=== PATIENT | female | born 1985 | race Asian ===

== ENCOUNTER → 2024-03-02 11:16 | Outpatient (REF) | payer BC, SELFPAY | LOC: PNTC 11:16 | PROVIDERS: ATTENDING PHYSICIAN Obstetrics & Gynecology | DX: Z36.0 Encounter for antenatal screening for chromosomal anomalies (principal); Z36.82 Encounter for antenatal screening for nuchal translucency | CPT/HCPCS: 76801; 76813 ==

== ENCOUNTER → 2024-06-01 07:42 | Outpatient (REF) | payer BC, SELFPAY | LOC: HWRAD 07:42 | PROVIDERS: ATTENDING PHYSICIAN Physician Assistant; FAMILY PHYSICIAN Internal Medicine | DX: E04.1 Nontoxic single thyroid nodule (principal) | CPT/HCPCS: 76536 ==

== ENCOUNTER → 2024-06-18 10:15 | Outpatient (REF) | payer BC, SELFPAY ==
--- NOTE | 2024-06-18 10:20 | PN.DIAED06 ---
Meal Plan - Gestational
- Breakfast
Gestational Diabetes Meal Plan Name: 1800 calories
Breakfast - Total Carbohydrate (grams): 30
Breakfast - Starch Carbohydrate: 1
Breakfast - Fruit Carbohydrate: 0
Breakfast - Milk Carbohydrate: 1
Breakfast - Nonstarchy Vegetables: Yes
Breakfast - Meat/Protein: 1
Breakfast - Fat: 2
- Morning Snack
Morning Snack - Total Carbohydrate (grams): 30
Morning Snack - Starch Carbohydrate: 1
Morning Snack - Fruit Carbohydrate: 0
Morning Snack - Milk Carbohydrate: 1
Morning Snack - Nonstarchy Vegetables: Yes
Morning Snack - Meat/Protein: 0.5
Morning Snack - Fat: 0
- Lunch
Lunch - Total Carbohydrate (grams): 45
Lunch - Starch Carbohydrate: 2
Lunch - Fruit Carbohydrate: 1
Lunch - Milk Carbohydrate: 0
Lunch - Nonstarchy Vegetables: Yes
Lunch - Meat/Protein: 2
Lunch - Fat: 1
- Afternoon Snack
Afternoon Snack - Total Carbohydrate (grams): 30
Afternoon Snack - Starch Carbohydrate: 1
Afternoon Snack - Fruit Carbohydrate: 1
Afternoon Snack - Milk Carbohydrate: 0
Afternoon Snack - Nonstarchy Vegetables: Yes
Afternoon Snack - Meat/Protein: 1
Afternoon Snack - Fat: 0
- Dinner
Dinner - Total Carbohydrate (grams): 45
Dinner - Starch Carbohydrate: 2
Dinner - Fruit Carbohydrate: 0
Dinner - Milk Carbohydrate: 1
Dinner - Nonstarchy Vegetables: Yes
Dinner - Meat/Protein: 2
Dinner - Fat: 2
- Evening Snack
Evening Snack - Total Carbohydrate (grams): 30
Evening Snack - Starch Carbohydrate: 1
Evening Snack - Fruit Carbohydrate: 0
Evening Snack - Milk Carbohydrate: 1
Evening Snack - Nonstarchy Vegetables: Yes
Evening Snack - Meat/Protein: 1
Evening Snack - Fat: 1
--- NOTE | 2024-06-18 11:45 | PN.DE ---
Diabetes Education
- -
Met with Ms. Ramirez with her for medical nutrition therapy. Vladimir is currently at 28 weeks of gestation.
Explained glucose metabolism in body and what occurs during to cause increase blood sugar. Discussed importance of keeping BS well controlled to avoid complications to the baby during and after (macrosomia, hypoglycemia).
Explained to Vladimir that she is at increased risk of developing T2DM in the future.
Offered glucose meter which she declined due to fear for needles. 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 Provided instructions on proper testing pattern, she is aware to test FBS and 2 hr pp each
meal. Expected results for FBS <95 mg/dl and 2 hr pp <120 mg/dl.
Log sheet provided for her to record results, she will send a 4 day meal log with all her FBG and 2hr Post prandial glucose numbers to this office for review.
In addition, she will send all her glucose readings to Colette at [facility] every Saturday.
Discussed macronutrients, provided with 1800 hanh GDM meal plan, however, she has a poor understanding of healthy nutrition as she has been consuming high carbohydrate foods like rice for each meal including breakfast. 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 Had a lengthy discussion about carbs and the impact they pose on the glycemic index.
She has been educated on how to read a nutritional fact label and look at total CHO in relation to serving size. No fruit or fruit juice until noontime. Provided with handout on snacks as well as 'Choose Your Foods' booklet. Encouraged her to start
exercising and to remain physically active during and encouraged her to reach out should she need any help with the CMG insertion or a need a script for a glucose monitor or have any questions or require insulin as her progresses.
== END ==
LOC: DES 10:15
PROVIDERS: ATTENDING PHYSICIAN Obstetrics & Gynecology
DX: O24.419 Gestational diabetes mellitus in pregnancy, unspecified control (principal)
CPT/HCPCS: 99078

== ENCOUNTER → 2024-07-01 13:24 | Outpatient (REF) | payer BC, SELFPAY | LOC: PNTC 13:24 | PROVIDERS: ATTENDING PHYSICIAN Obstetrics & Gynecology | DX: O24.419 Gestational diabetes mellitus in pregnancy, unspecified control (principal) | CPT/HCPCS: 76815 ==

== ENCOUNTER → 2024-08-13 13:22 | Outpatient (REF) | payer BC, SELFPAY | LOC: PNTC 13:22 | PROVIDERS: ATTENDING PHYSICIAN Obstetrics & Gynecology | DX: O09.529 Supervision of elderly multigravida, unspecified trimester (principal) | CPT/HCPCS: 59025; 76816 ==

== ENCOUNTER → 2024-08-20 09:20 | Outpatient (REF) | payer BC, SELFPAY | LOC: PNTC 09:20 | PROVIDERS: ATTENDING PHYSICIAN Obstetrics & Gynecology | DX: O34.219 Maternal care for unspecified type scar from previous cesarean delivery (principal) | CPT/HCPCS: 59025; 76815 ==

== ENCOUNTER → 2024-08-27 11:34 | Outpatient (REF) | payer BC, SELFPAY | LOC: PNTC 11:34 | PROVIDERS: ATTENDING PHYSICIAN Obstetrics & Gynecology | DX: O34.219 Maternal care for unspecified type scar from previous cesarean delivery (principal) | CPT/HCPCS: 59025; 76815 ==

== ENCOUNTER 2024-09-01 09:51 | Inpatient (IN) | payer BC, SELFPAY ==
[2024-09-01 10:01] VITALS: BP 121/80; BMI 28.5
[2024-09-01] MEDS: LR 1000 IV (10:30)
[2024-09-01 10:33] LABS: Glucose - Point of Care 83 mg/dl (70-99)
[2024-09-01] MEDS: BICITRA 30 ML PO (10:38)
[2024-09-01] MEDS: ANCEF 10 IV (10:38)
[2024-09-01] MEDS: TYLENOL 1000 MG PO (10:38)
[2024-09-01 10:59] LABS: Hematocrit 40.2 % (37.0-47.0); Hemoglobin 12.6 g/dL (12.0-16.0); Mean Corp Hgb Conc. 31.3 g/dL (33.0-37.0); Mean Corpuscular Volume 70.3 fL (81.0-99.0); Mean Platelet Volume 10.7 fL (7.4-10.4); Platelet Count 212 10^3/uL (130-400); Red Blood Cell Count 5.72 10^6/uL (4.20-5.40); Red Cell Dist. Width 15.5 % (11.5-14.5); White Blood Cell Count 10.4 10^3/uL (4.8-10.8)
[2024-09-01] MEDS: MORPHINE SULFATE 2 MG IV ×2 (13:14→14:21)
[2024-09-01] MEDS: TORADOL 15 MG IV ×2 (16:35→22:30)
[2024-09-02] MEDS: BENADRYL 25 MG PO (00:39)
[2024-09-02] MEDS: TORADOL 15 MG IV ×2 (04:33→12:09)
[2024-09-02 05:38] LABS: Hematocrit 37.4 % (37.0-47.0); Hemoglobin 11.6 g/dL (12.0-16.0); Mean Corpuscular Hgb 22.3 pg (27.0-31.0); Mean Corpuscular Volume 71.8 fL (81.0-99.0); Platelet Count 198 10^3/uL (130-400); Red Blood Cell Count 5.21 10^6/uL (4.20-5.40); Red Cell Dist. Width 15.3 % (11.5-14.5); White Blood Cell Count 15.2 10^3/uL (4.8-10.8)
[2024-09-02] MEDS: PRENATAL PLUS 1 TABLET PO (07:41)
[2024-09-02] MEDS: SENOKOT-S 1 TABLET PO (07:41)
[2024-09-02] MEDS: MYLICON 80 MG PO ×2 (07:41→21:06)
[2024-09-02] MEDS: FEOSOL 325 MG PO (07:41)
--- NOTE | 2024-09-02 15:24 | W.PN.ANS.POP ---
Anesthesia Post Operative
- Anesthesia Post Op Note
Vital Signs Stable-See Nursing Note: Yes
Airway Patent: Yes
Adequate Pain Control: Yes
Change in Mental Status: No
Current Postoperative Nausea & Vomiting: No
Anesthesia Complications: No
General Anesthetic Recall: No
Unplanned Admission: No
Post Op Hydration Adequate: Yes
[2024-09-02] MEDS: MOTRIN 600 MG PO (21:05)
[2024-09-02] MEDS: TYLENOL 650 MG PO (21:06)
[2024-09-03] MEDS: TYLENOL 650 MG PO ×3 (04:55→19:42)
[2024-09-03] MEDS: MOTRIN 600 MG PO ×3 (04:55→19:43)
[2024-09-03] MEDS: SENOKOT-S 1 TABLET PO (08:34)
[2024-09-03] MEDS: PRENATAL PLUS 1 TABLET PO (08:34)
[2024-09-03] MEDS: FEOSOL 325 MG PO (08:34)
[2024-09-03] MEDS: MYLICON 80 MG PO (19:43)
[2024-09-04] MEDS: MOTRIN 600 MG PO ×2 (03:08→12:03)
[2024-09-04] MEDS: TYLENOL 650 MG PO ×2 (03:09→12:03)
[2024-09-04] MEDS: FEOSOL 325 MG PO (08:06)
[2024-09-04] MEDS: PRENATAL PLUS 1 TABLET PO (08:06)
[2024-09-04] MEDS: SENOKOT-S 1 TABLET PO (08:07)
--- NOTE | 2024-09-04 09:22 | W.DS.TRANS ---
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
-
Discharge Instructions:
Discharge Diagnosis/Procedures rcs
Instructions:
Stand-Alone Forms: LDRP Delivery
Changes to Home Medications: No
Discharge Medications:
DC Medications w/original date entered in [facility]
prenat.vits,hanh,oqk-tubk-bquof 1 tab PO DAILY 09/01/24
ibuprofen 600 mg tablet 600 mg PO Q6HPRN PRN cramps #90 tabs 09/04/24
Home Medication Changes
Pending Results: No
Total time spent discharging patient (in min): 20
[2024-09-04 11:57] LABS: Syphilis/T. pallidum Ab Reflex Negative (Negative)
== END 2024-09-04 13:05 | disposition home or self-care (01) | DRG 785 ==
LOC: LDRP 09:51
PROVIDERS: ADMITTING PHYSICIAN Obstetrics & Gynecology
PROC: 10D00Z1 Extraction of Products of Conception, Low, Open Approach (ICD-10-PCS; 2024-09-01)
PROC: 0UB70ZZ Excision of Bilateral Fallopian Tubes, Open Approach (ICD-10-PCS; 2024-09-01)
DX: O34.211 Maternal care for low transverse scar from previous cesarean delivery (principal); O24.420 Gestational diabetes mellitus in childbirth, diet controlled; Z3A.39 39 weeks gestation of pregnancy; Z37.0 Single live birth; N85.8 Other specified noninflammatory disorders of uterus; E05.90 Thyrotoxicosis, unspecified without thyrotoxic crisis or storm; O99.284 Endocrine, nutritional and metabolic diseases complicating childbirth; N83.209 Unspecified ovarian cyst, unspecified side; O34.83 Maternal care for other abnormalities of pelvic organs, third trimester; Z30.2 Encounter for sterilization
CPT/HCPCS: 88302; 88307; 36415; 58605; 82962; 85027; 86780; 86850; 86900; 86901

== ENCOUNTER 2024-09-05 23:51 | Emergency (ER) | payer BC, SELFPAY ==
[2024-09-05 23:53] VITALS: BP 144/95
[2024-09-06 00:17] VITALS: BMI 27.4
--- NOTE | 2024-09-06 00:19 | ED.GENMED ---
History of Present Illness
General
Chief Complaint: Headache
Source: patient and spouse
Exam Limitations: none
Time Seen by Provider: 09/05/24 23:58
Nursing documentation reviewed up to this point in time: agreed with
History of Present Illness
History of Present Illness:
39 yo female , hx of post pre eclampsia. had C section 09/01, gestational diabetes, no complications at . States about 8 p.m. developed 5/10 general headache, took her BP 140/90,
Denies change in vision, weakness or numbness in extremities, n/v.
Past History
Past History
ED Past Medical History: Other (Gestational diabetes, post pre eclampsia)
ED Past Surgical History: Cholecystectomy and
Social History
Tobacco: Non-smoker
Alcohol: None
Personal:
Living: with family
Review of Systems
Review of Systems
Allergies reviewed?: Yes
All Other Systems: ROS reviewed and negative except as documented in HPI and ROS
Constitutional: Denies fever
Respiratory: Denies trouble breathing
Cardiac: Denies chest pain
ABD/GI: Denies abdominal pain, nausea, vomiting, diarrhea or anorexia
: Reports bleeding ( vaginal bleeding); Denies dysuria, frequency or difficulty voiding
Musculoskeletal: Reports no symptoms
Skin: Reports no symptoms
Neurological: Reports headache (Mild, 3/10); Denies dizzy, weakness or numbness
Phy Exam
Physical Exam
Physical Exam:
GENERAL: No acute distress. A&Ox3.
CONSTITUTIONAL: Afebrile.
EYES: clear, conjunctivae normal
ENMT: moist mucus membranes
RESPIRATORY: Regular respirations, nonlabored, lungs clear.
CARDIOVASCULAR: Regular rate and rhythm, no murmurs, no rubs.
GI: Soft, nontender, normal BS
MUSCULOSKELETAL: Moves with ease. Well perfused. No edema
SKIN: Warm, dry, normal
PSYCH: Normal mood and affect. Well kept, interactive and appropriate
NEUROLOGIC: Awake, alert and oriented. No focal neurological deficits
Course
Orders/Labs/Results
Orders:
Orders
09/06/24 00:19
Complete Blood Count/With Diff Urgent
Comprehensive Metabolic Panel Urgent
09/06/24 00:50
Urinalysis Urgent
Date Specimen was Collected: 09/06/24
Time Specimen was Collected: 00:48
Abnormal Lab Results
09/06/24
00:19
RBC 5.45 H 10^6/uL
(4.20-5.40)
MCV 71.0 L fL
(81.0-99.0)
MCH 22.0 L pg
(27.0-31.0)
MCHC 31.0 L g/dL
(33.0-37.0)
RDW 14.8 H %
(11.5-14.5)
MPV 11.5 H fL
(7.4-10.4)
Alkaline Phosphatase 133 H U/L
(38-126)
Albumin 3.3 L g/dl
(3.5-5.0)
09/06/24 00:19
09/06/24 00:19
Vital Signs
Initial and Last Documented VS:
Initial Vital Signs
Temp Pulse Resp BP Pulse Ox
98.3 F 80 18 144/95 100
09/05/24 23:53 09/05/24 23:53 09/05/24 23:53 09/05/24 23:53 09/05/24 23:53
Last Documented Vital Signs
Temp Pulse Resp BP Pulse Ox
98.3 F 62 16 127/84 99
09/05/24 23:53 09/06/24 02:00 09/06/24 02:00 09/06/24 02:00 09/06/24 00:40
MDM/Problems Addressed
Differential Diagnosis Includes:
preeclampsia, primary headache, situational hypertension
MDM/Problems Addressed:
39 yo female , hx of post pre eclampsia. had C section 09/01, gestational diabetes, no complications at . States about 8 p.m. developed 12/26 general headache, took her BP 140/90,
Denies change in vision, weakness or numbness in extremities, n/v.
NAD, mild headache, improved after Motrin [employer] from 12/26 to 10/26.
12:50 a.m.
BP139/91
CBC, CMP with no clinically significant abnormality
U/A: Negative
2:00 a.m.
BP 122/69
Pt states h/a is gone
Stable for discharge.
*Critical Care Note
Total Time (30-74mins, 75-104mins- exclusive of procedures): Not Applicable
ED Attending Note
-
Portions of this chart may have been created with voice recognition software.� Occasional wrong word or��sound alike� substitutions may have occurred due to the inherent limitations of voice recognition software.
Discharge Plan
Departure
Patient Disposition: Home (Routine Discharge)
Date of Disposition: 09/06/24
Time of Disposition: 02:20
Patient with high blood pressure during this ER visit?: No
Condition: Good
Discharge Problem:
Situational hypertension, Headache
Instructions: Headache, Adult (DC)
Prescriptions:
No Action
prenat.vits,hanh,xms-uieb-igtkv Tablet
1 tab PO DAILY
ibuprofen 600 mg Tablet
600 mg PO Q6HPRN PRN (Reason: cramps) Qty: 90 0RF
Referrals:
Soumya Massey DO [Family Provider] - As needed
Activity Restrictions/Additional Instructions:
As we discussed, your blood pressure is normal, your blood work and urine are normal, no sign of preeclampsia
Interventions
Interventions:
*Risk Screen - Suicide Last Done: 09/06/24 00:23
*General Assessment Last Done: 09/05/24 23:53
*Neglect/Abuse Screening Last Done: 09/05/24 23:53
ED- Fall Risk Assessment Last Done: 09/06/24 00:22
*ED COVID-19 Vaccine History Last Done: 09/05/24 23:53
ED- Neurological Assessment Last Done: 09/06/24 00:06
Discharge Date and Time
Print Language: JAPANESE
[2024-09-06 00:20] VITALS: BP 146/91
[2024-09-06 00:30] LABS: % Basophils 0.3 % (0-2); % Eosinophils 5.9 % (0-6); % Immature Granulocytes 0.4 % (0-0.5); % Lymphocytes 24.7 % (20.5-51.1); % Monocytes 5.5 % (1.7-9.3); % Neutrophils 63.2 % (42.2-75.2); Absolute Eosinophils 0.6 10^3/uL (0-0.7); Absolute Lymphocytes 2.3 10^3/uL (1.2-3.4); Absolute Monocytes 0.5 10^3/uL (0.1-0.6); Hematocrit 38.7 % (37.0-47.0); Mean Platelet Volume 11.5 fL (7.4-10.4); Nucleated Red Blood Cells % 0 %; Platelet Count 275 10^3/uL (130-400); Red Blood Cell Count 5.45 10^6/uL (4.20-5.40); Red Cell Dist. Width 14.8 % (11.5-14.5); White Blood Cell Count 9.5 10^3/uL (4.8-10.8)
[2024-09-06 00:40] VITALS: BP 139/91
[2024-09-06 00:45] LABS: ALT (SGPT) 24 U/L (0-35); AST (SGOT) 25 U/L (14-36); Albumin 3.3 g/dl (3.5-5.0); Alkaline Phosphatase 133 U/L (38-126); Blood Urea Nitrogen 16 mg/dl (7-17); Carbon Dioxide 29 mmol/L (22-30); Chloride 104 mmol/L (98-107); Estimated Creatinine Clearance 81 ml/min; Glucose 93 mg/dl (70-99); Potassium 4.4 mmol/L (3.5-5.1); Sodium 140 mmol/L (135-145); Total Protein 6.5 g/dl (6.3-8.2); eGFR > 60.00
[2024-09-06 01:00] VITALS: BP 139/90
[2024-09-06 01:01] LABS: Urine Albumin Negative (Neg - Trace); Urine Bilirubin Negative (Negative); Urine Character Clear (Clear); Urine Color Yellow; Urine Glucose Negative (Negative); Urine Ketone Negative (Negative); Urine Leukocyte Negative (Negative); Urine Nitrite Negative (Negative); Urine Occult Blood Negative (Negative); Urine Specific Gravity 1.005 (<1.030); Urine Urobilinogen Negative (Neg - 1+)
[2024-09-06 01:20] VITALS: BP 129/92
[2024-09-06 01:40] VITALS: BP 122/69
[2024-09-06 02:00] VITALS: BP 127/84
== END 2024-09-06 02:35 | disposition home or self-care (01) ==
LOC: EMR 23:51
PROVIDERS: Registered Nurse; EMERGENCY PHYSICIAN Emergency Medicine; FAMILY PHYSICIAN Internal Medicine
DX: O90.89 Other complications of the puerperium, not elsewhere classified (principal); R51.9 Headache, unspecified; I10 Essential (primary) hypertension; Z90.49 Acquired absence of other specified parts of digestive tract
CPT/HCPCS: 99283; 80053; 81003; 85025